=== PATIENT | male | born 1935 | race Caucasian/White ===

== ENCOUNTER → 2021-02-16 | Outpatient (CLI) | payer MEDICARE, OTHER ==
[~2021-02-16] MED LIST: ASPIR 8181 MG PO; FLOMAX0.4 MG PO; IMDUR 30 MG TAB30 M1 PO; LOPRESSOR25 PO; PRESERVISION A1 EAC2 PO; TRICOR145 MG PO; VITAMIN D210 MCG PO; ZOCOR20 MG PO
[2021-02-16 10:25] VITALS: BP 140/59
== END ==
LOC: M.INT 02-10 15:00
PROVIDERS: ATTEND Family Medicine
DX: S22.068A Other fracture of T7-T8 thoracic vertebra, initial encounter for closed fracture (principal); X58.XXXA Exposure to other specified factors, initial encounter; Y93.89 Activity, other specified; Y92.89 Other specified places as the place of occurrence of the external cause; Y99.8 Other external cause status

== ENCOUNTER → 2021-02-25 | Outpatient (CLI) | payer MEDICARE, OTHER ==
[~2021-02-25] VITALS: Ht 185.4 cm; Wt 91.2 kg
[2021-02-25 09:34] VITALS: BP 115/53
[2021-02-25 09:53] LABS: HEMATOCRIT 42.6 % (42.0-52.0); HEMOGLOBIN 14.2 gm/dL (14.0-18.0); MCH 33.2 pg (26.0-34.0); MCHC 33.4 g/dL (28.0-37.0); MCV 99.4 fL (80.0-100.0); MPV 7.2 fl. (7.2-11.1); RBC 4.28 mil/uL (4.50-6.00); RDW-CV 13.3 % (10.5-14.5); WBC 5.4 thou/uL (4.0-11.0)
[2021-02-25 10:09] LABS: CALCIUM 8.7 mg/dL (8.5-10.1); CREATININE 1.8 mg/dL (0.6-1.3)
[2021-02-25 10:13] LABS: ALBUMIN 3.5 g/dL (3.4-5.0); TOTAL BILIRUBIN 0.7 mg/dL (<0.1-1.0); TOTAL PROTEIN 7.3 g/dL (6.4-8.2)
[2021-02-25 10:14] LABS: APTT 27.6 Seconds (25.0-31.3); INR 1.1; PROTIME 11.4 Seconds (9.20-11.50)
[2021-02-25 12:45] VITALS: BP 162/79
[2021-02-25 13:00] VITALS: BP 162/72
[2021-02-25 13:15] VITALS: BP 147/69
== END | disposition home or self-care (01) ==
LOC: M.INT 08:48
PROVIDERS: ATTEND Radiology Diagnostic Radiology
DX: M80.08XA Age-related osteoporosis with current pathological fracture, vertebra(e), initial encounter for fracture (principal); M54.9 Dorsalgia, unspecified; N18.30 Chronic kidney disease, stage 3 unspecified; E78.00 Pure hypercholesterolemia, unspecified; Z98.890 Other specified postprocedural states; Z79.899 Other long term (current) drug therapy; Z95.1 Presence of aortocoronary bypass graft; Z88.8 Allergy status to other drugs, medicaments and biological substances